=== PATIENT | female | born 1960 | race Two or more races ===

== ENCOUNTER 2018-09-10 13:57 | Outpatient (CLI) | payer OTHER | END 2018-09-10 15:37 | disposition home or self-care (01) | LOC: TOM 13:57 | DX: N28.1 Cyst of kidney, acquired (principal) ==

== ENCOUNTER 2018-11-22 11:49 | Outpatient (CLI) | payer OTHER | END 2018-11-22 13:16 | disposition home or self-care (01) | LOC: LAB 11:49 | DX: N20.0 Calculus of kidney (principal) ==